=== PATIENT | male | born 1985 | race Caucasian/White ===

== ENCOUNTER 2016-11-27 21:56 | Emergency (ER) | payer OTHER ==
[~2016-11-27] VITALS: Ht 180.3 cm; Wt 104.5 kg
[~2016-11-27 21:56] MED LIST: CEPHALEXIN500 M1 PO; ELAVIL10 MG PO; FISH OIL500 MG PO; NAPROSYN500 MG PO; NORCO 325 MG-51 TAB PO; VITAMIN D1000 IU PO; ZOCOR
[2016-11-27 22:04] VITALS: BP 176/95; TEMP 98.2
[2016-11-27] MEDS ORDERED: AMOXICILLIN 50500 MG PO (22:34)
[2016-11-27] MEDS ORDERED: NORCO 325 MG-51 TAB PO (22:34)
[2016-11-27 22:53] VITALS: PULSE 87
== END 2016-11-27 22:54 | disposition home or self-care (01) ==
LOC: COL.ER 21:56
DX: K08.89 Other specified disorders of teeth and supporting structures (principal); K03.81 Cracked tooth; F17.210 Nicotine dependence, cigarettes, uncomplicated

== ENCOUNTER 2018-10-21 21:59 | Emergency (ER) | payer OTHER ==
[~2018-10-21] VITALS: Ht 177.8 cm; Wt 104.5 kg
[~2018-10-21 21:59] MED LIST changes: +AMOXICILLIN 50500 MG PO
[2018-10-21 22:06] VITALS: BP 120/77; TEMP 98.2
[2018-10-21] MEDS ORDERED: PEN-VEE K500 MG PO (22:34)
[2018-10-21 22:49] VITALS: PULSE 80
== END 2018-10-21 22:52 | disposition home or self-care (01) ==
LOC: COL.ER 21:59
DX: K08.89 Other specified disorders of teeth and supporting structures (principal); F17.210 Nicotine dependence, cigarettes, uncomplicated

== ENCOUNTER 2019-01-25 23:00 | Emergency (ER) | payer OTHER ==
[~2019-01-25] VITALS: Ht 177.8 cm; Wt 110.0 kg
[~2019-01-25 23:00] MED LIST changes: +PEN-VEE K500 MG PO
[2019-01-25 23:05] VITALS: BP 143/95; TEMP 98.4
[2019-01-26] MEDS ORDERED: CEPHALEXIN500 M1 PO (00:07)
[2019-01-26] MEDS ORDERED: BACTRIM DS 8001 TAB PO (00:07)
[2019-01-26 00:39] VITALS: PULSE 79
[2019-01-26] MEDS ORDERED: BACTROBAN22 TOP (00:52)
== END 2019-01-26 00:40 | disposition home or self-care (01) ==
LOC: COL.ER 23:00
DX: L03.113 Cellulitis of right upper limb (principal)

== ENCOUNTER 2019-09-29 16:04 | Emergency (ER) | payer OTHER ==
[~2019-09-29 16:04] MED LIST changes: +BACTRIM DS 8001 TAB PO; +BACTROBAN22 TOP
== END 2019-09-29 16:30 | disposition left against medical advice (07) ==
LOC: COL.ER 16:04
DX: Z72.9 Problem related to lifestyle, unspecified (principal)

== ENCOUNTER → 2023-12-11 | Outpatient (CLI) | payer OTHER | LOC: MHCPAIN 14:18 | DX: M47.897 Other spondylosis, lumbosacral region (principal); M54.16 Radiculopathy, lumbar region; M51.36 Other intervertebral disc degeneration, lumbar region | CPT/HCPCS: G0463 ==